=== PATIENT | male | born 1960 | race American Indian/Alaskan Native ===

== ENCOUNTER 2021-06-08 16:21 | Outpatient (CLI) | payer OTHER ==
[2021-06-08 16:53] LABS: Basophils % (Auto) 0.8 % (0.0-1.8); Eosinophils # (Auto) 0.2 K/mm3 (0.0-0.4); Eosinophils % (Auto) 2.8 % (0.0-4.3); Hematocrit 39.4 % (35.5-45.6); Hemoglobin 13.3 gm/dl (11.8-15.2); Lymphocytes # (Auto) 1.6 K/mm3 (1.2-5.4); Lymphocytes % (Auto) 29.3 % (13.4-35.0); Mean Corpuscular HGB Conc 34 % (32-34); Mean Corpuscular Volume 87 fl (84-94); Monocytes # (Auto) 0.5 K/mm3 (0.0-0.8); Monocytes % (Auto) 8.9 % (0.0-7.3); Platelet Count 244 K/mm3 (140-440); Red Blood Count 4.56 M/mm3 (3.65-5.03); Red Cell Distribution Width 15.3 % (13.2-15.2)
[2021-06-08 17:12] LABS: Albumin 3.7 g/dL (3.9-5); Calcium 10.1 mg/dL (8.4-10.2); Chol/HDL Ratio 2.7 %
--- NOTE | 2021-06-08 17:37 | XRay Report ---
CHEST 2 VIEWS INDICATION / CLINICAL INFORMATION: HTN STUDY TIME: 1718 COMPARISON: None available. FINDINGS: SUPPORT DEVICES: None. HEART / MEDIASTINUM: No significant abnormality. LUNGS / PLEURA: No significant acute pulmonary or pleural abnormality. No pneumothorax. ADDITIONAL FINDINGS: Moderate thoracic DISH is seen. Signer Name: Nahun Ellis MD Signed: 06/08/2021 5:33 PM Workstation Name: [id number]
== END 2021-06-08 16:22 | disposition home or self-care (01) ==
LOC: XRAY 16:21
PROVIDERS: ATTEND Internal Medicine
DX: I51.9 Heart disease, unspecified (principal); I10 Essential (primary) hypertension; E11.9 Type 2 diabetes mellitus without complications; Z68.41 Body mass index [BMI] 40.0-44.9, adult; M51.34 Other intervertebral disc degeneration, thoracic region
CPT/HCPCS: 36415; 71046; 80053; 80061; 82805; 84436; 84443; 85025

== ENCOUNTER 2021-06-21 11:00 | Outpatient (CLI) | payer OTHER | END 2021-06-21 11:01 | disposition home or self-care (01) | LOC: SLR 11:00 | PROVIDERS: ATTEND Internal Medicine | DX: G47.30 Sleep apnea, unspecified (principal) | CPT/HCPCS: G0399 ==

== ENCOUNTER 2021-07-03 12:52 | Emergency (ER) | payer OTHER ==
[2021-07-03 12:57] VITALS: BP 140/87
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
== END 2021-07-03 14:38 | disposition home or self-care (01) ==
LOC: ED 12:52
DX: S39.012A Strain of muscle, fascia and tendon of lower back, initial encounter (principal); M51.36 Other intervertebral disc degeneration, lumbar region; V89.2XXA Person injured in unspecified motor-vehicle accident, traffic, initial encounter; Y92.488 Other paved roadways as the place of occurrence of the external cause; Y93.89 Activity, other specified; Y99.8 Other external cause status
CPT/HCPCS: 71046; 72100